=== PATIENT | male | born 1955 | race Caucasian/White ===

== ENCOUNTER 2016-12-09 16:07 | Emergency (ER) | payer OTHER, BC ==
[~2016-12-09] VITALS: Ht 175.3 cm; Wt 75.8 kg
[~2016-12-09 16:07] MED LIST: ADVAIR 250/501 DISK IH; ALKA-SELTZER B324 MG PO; AMLODIPINE BESY10 MG PO; ASPIRIN325 MG PO; ASPIRIN81 M2 PO; BYSTOLIC5 MG; CARVEDILOL25 MG PO; FOLIC ACID1 MG PO; HYDROCHLOROTHIA25 MG PO; LIBRIUM25 MG PO; LOPRESSOR25 MG PO; LOSARTAN POTASS50 MG PO; MOTRIN600 MG PO; NAPROSYN500 MG PO; THIAMINE HCL100 MG PO; ULTRAM50 MG PO; VENTOLIN HFA18 GM IH
[2016-12-09 23:01] VITALS: BP 139/87
== END 2016-12-09 23:01 | disposition home or self-care (01) ==
LOC: EME 16:07
DX: M19.031 Primary osteoarthritis, right wrist (principal); F10.10 Alcohol abuse, uncomplicated; V49.40XA Driver injured in collision with unspecified motor vehicles in traffic accident, initial encounter; Z88.8 Allergy status to other drugs, medicaments and biological substances
CPT/HCPCS: 70450; 71020; 72125; 73110; 73130; 99281; 99284

== ENCOUNTER 2017-05-23 14:40 | Inpatient (IN) | payer BC, OTHER ==
[~2017-05-23] VITALS: Ht 177.8 cm; Wt 71.0 kg
[2017-05-23 16:02] LABS: MCH 32.9 PG (29.0-34.0); MCHC 35.9 G/DL (30.0-36.0); MCV 91.5 FL (86-99); PLATELET COUNT 96 K/uL (156-360); RBC DIS.WIDTH-CV 12.4 % (11.8-14.6); RBC DIS.WIDTH-SD 41.2 % (39-53); RED BLOOD COUNT 4.26 M/uL (4.00-5.50); WHITE BLOOD COUNT 6.2 K/uL (4.1-10.2)
[2017-05-23 16:10] LABS: ALBUMIN 4.4 g/dL (3.2-4.8); CHLORIDE 98 mEq/L (99-109); POTASSIUM 4.3 mEq/L (3.7-5.4); SODIUM 138 mEq/L (136-147)
[2017-05-23 16:13] LABS: GLUCOSE 85 mg/dL (70-99); TOTAL PROTEIN 8.8 g/dL (6.4-8.3)
[2017-05-23 16:15] LABS: TOTAL BILIRUBIN 1.2 mg/dL (0.0-1.0)
[2017-05-23 16:16] LABS: ALKALINE PHOSPHATASE 67 IU/L (3-129); SERUM ETHYL ALCOHOL 24 mg/dL
[2017-05-23 16:17] LABS: CREATININE 0.9 mg/dL (0.6-1.3); GFR ESTIMATE (CALCULATED) > 59 mL/min/ (58.99-99999)
[2017-05-23 16:18] LABS: AST (GOT) 103 IU/L (2-34); UREA NITROGEN (BUN) 17 mg/dL (9-23)
[2017-05-23 16:19] LABS: ALT (GPT) 74 IU/L (3-49)
[2017-05-23 17:04] LABS: INTER. NORMALIZED RATIO 1.1
[2017-05-23 23:06] LABS: MAGNESIUM 1.7 mg/dL (1.3-2.7)
[2017-05-23] MEDS ORDERED: BREO ELLIPTA I1 EACH IH (23:07)
[2017-05-23] MEDS ORDERED: POLYTRIM EYE DR10 ML BOTH EYES (23:07)
[2017-05-23] MEDS ORDERED: ERYTHROMYC1 APPLICAT BOTH EYES (23:08)
[2017-05-23 23:39] VITALS: BP 119/113
[2017-05-23 23:46] LABS: MAGNESIUM 1.6 mg/dL (1.3-2.7)
[2017-05-23 23:50] LABS: PHOSPHORUS 2.9 mg/dL (2.5-4.9)
[2017-05-23 23:57] LABS: TROP-I INTERPRETATION NEGATIVE; TROPONIN-I 0.16 ng/mL (0.0-0.30)
[2017-05-24 03:55] VITALS: BP 176/100
[2017-05-24 06:42] LABS: TROP-I INTERPRETATION NEGATIVE; TROPONIN-I 0.12 ng/mL (0.0-0.30)
[2017-05-24 06:46] LABS: MAGNESIUM 1.5 mg/dl (1.3-2.7); PHOSPHORUS 2.9 mg/dL (2.5-4.9)
[2017-05-24 07:47] VITALS: BP 157/98
[2017-05-24 07:52] LABS: HEMATOCRIT 38.5 % (38.0-50.0); HEMOGLOBIN 13.5 G/DL (12.5-16.6); MCH 32.5 PG (29.0-34.0); MCHC 35.1 G/DL (30.0-36.0); MCV 92.5 FL (86-99); PLATELET COUNT 94 K/uL (156-360); RBC DIS.WIDTH-CV 12.4 % (11.8-14.6); RBC DIS.WIDTH-SD 42.4 % (39-53); RED BLOOD COUNT 4.16 M/uL (4.00-5.50); WHITE BLOOD COUNT 6.3 K/uL (4.1-10.2)
[2017-05-24 08:04] LABS: ALBUMIN 4.1 G/DL (3.2-4.8); ALKALINE PHOSPHATASE 61 IU/L (3-129); ALT (GPT) 51 IU/L (3-49); AST (GOT) 66 IU/L (2-34); CHLORIDE 97 MEQ/L (99-109); CREATININE 0.9 MG/DL (0.6-1.3); GFR ESTIMATE (CALCULATED) > 59 mL/min/ (58.99-99999); GLUCOSE 110 mg/dL (70-99); POTASSIUM 3.6 MEQ/L (3.7-5.4); SODIUM 138 MEQ/L (136-147); TOTAL BILIRUBIN 1.6 MG/DL (0.0-1.0); TOTAL PROTEIN 7.5 G/DL (6.4-8.3); UREA NITROGEN (BUN) 15 mg/dL (9-23)
[2017-05-24 11:16] VITALS: BP 133/77
[2017-05-24 13:11] LABS: TROP-I INTERPRETATION NEGATIVE; TROPONIN-I 0.09 ng/mL (0.0-0.30)
[2017-05-24 16:16] VITALS: BP 153/83
[2017-05-24 19:01] VITALS: BP 158/70
[2017-05-24 23:50] VITALS: BP 145/64
[2017-05-25 07:43] VITALS: BP 116/69
[2017-05-25 12:18] VITALS: BP 140/62
[2017-05-25 16:14] VITALS: BP 122/67
[2017-05-25 21:27] VITALS: BP 158/86
[2017-05-26 06:59] VITALS: BP 140/81
[2017-05-26 07:34] LABS: ALBUMIN 3.6 G/DL (3.2-4.8); ALKALINE PHOSPHATASE 56 IU/L (3-129); ALT (GPT) 74 IU/L (3-49); CHLORIDE 103 MEQ/L (99-109); CREATININE 0.7 MG/DL (0.6-1.3); GFR ESTIMATE (CALCULATED) > 59 mL/min/ (58.99-99999); GLUCOSE 83 mg/dL (70-99); POTASSIUM 3.2 MEQ/L (3.7-5.4); SODIUM 140 MEQ/L (136-147); TOTAL PROTEIN 6.6 G/DL (6.4-8.3); UREA NITROGEN (BUN) 10 mg/dL (9-23)
[2017-05-26 07:36] LABS: AST (GOT) 117 IU/L (2-34); TOTAL BILIRUBIN 1.2 MG/DL (0.0-1.0)
[2017-05-26 15:11] VITALS: BP 149/80
[2017-05-26 23:39] VITALS: BP 166/93
[2017-05-27 05:53] LABS: HEMATOCRIT 37.2 % (38.0-50.0); HEMOGLOBIN 13.2 G/DL (12.5-16.6); MCH 32.8 PG (29.0-34.0); MCHC 35.5 G/DL (30.0-36.0); MCV 92.5 FL (86-99); PLATELET COUNT 113 K/uL (156-360); RBC DIS.WIDTH-CV 12.3 % (11.8-14.6); RBC DIS.WIDTH-SD 42.3 % (39-53); RED BLOOD COUNT 4.02 M/uL (4.00-5.50); WHITE BLOOD COUNT 5.7 K/uL (4.1-10.2)
[2017-05-27 06:25] LABS: ALBUMIN 3.8 G/DL (3.2-4.8); ALKALINE PHOSPHATASE 59 IU/L (3-129); ALT (GPT) 93 IU/L (3-49); AST (GOT) 120 IU/L (2-34); CHLORIDE 102 MEQ/L (99-109); CREATININE 0.8 MG/DL (0.6-1.3); GFR ESTIMATE (CALCULATED) > 59 mL/min/ (58.99-99999); GLUCOSE 97 mg/dL (70-99); SODIUM 137 MEQ/L (136-147); UREA NITROGEN (BUN) 11 mg/dL (9-23)
[2017-05-27 06:33] LABS: POTASSIUM 3.9 MEQ/L (3.7-5.4)
[2017-05-27 07:48] VITALS: BP 191/99
[2017-05-27 11:30] VITALS: BP 128/70
[2017-05-27 15:48] VITALS: BP 130/67
[2017-05-27 20:20] VITALS: BP 163/98
[2017-05-28 00:10] VITALS: BP 178/83
[2017-05-28 07:21] VITALS: BP 185/91
[2017-05-28 15:59] VITALS: BP 148/76
[2017-05-28 21:06] VITALS: BP 183/94
[2017-05-29 05:32] VITALS: BP 143/110
[2017-05-29 06:49] LABS: HEMATOCRIT 36.7 % (38.0-50.0); HEMOGLOBIN 13.1 G/DL (12.5-16.6); MCH 33.7 PG (29.0-34.0); MCHC 35.7 G/DL (30.0-36.0); MCV 94.3 FL (86-99); RBC DIS.WIDTH-CV 13.2 % (11.8-14.6); RBC DIS.WIDTH-SD 44.7 % (39-53); RED BLOOD COUNT 3.89 M/uL (4.00-5.50); WHITE BLOOD COUNT 11.7 K/uL (4.1-10.2)
[2017-05-29 06:50] LABS: PLATELET COUNT 158 K/uL (156-360)
[2017-05-29 07:14] LABS: ALBUMIN 4.1 G/DL (3.2-4.8); ALKALINE PHOSPHATASE 55 IU/L (3-129); ALT (GPT) 118 IU/L (3-49); AST (GOT) 103 IU/L (2-34); CHLORIDE 105 MEQ/L (99-109); CREATININE 0.9 MG/DL (0.6-1.3); GFR ESTIMATE (CALCULATED) > 59 mL/min/ (58.99-99999); GLUCOSE 83 mg/dL (70-99); SODIUM 141 MEQ/L (136-147); UREA NITROGEN (BUN) 11 mg/dL (9-23)
[2017-05-29 07:15] LABS: MAGNESIUM 1.2 mg/dl (1.3-2.7)
[2017-05-29 07:25] VITALS: BP 160/84
[2017-05-29 15:19] VITALS: BP 146/89
[2017-05-29 23:38] VITALS: BP 158/63
[2017-05-29 23:39] VITALS: BP 168/78
[2017-05-30 06:33] LABS: HEMATOCRIT 35.9 % (38.0-50.0); HEMOGLOBIN 12.8 G/DL (12.5-16.6); MCH 33.9 PG (29.0-34.0); MCHC 35.7 G/DL (30.0-36.0); PLATELET COUNT 175 K/uL (156-360); RBC DIS.WIDTH-CV 13.1 % (11.8-14.6); RBC DIS.WIDTH-SD 45.3 % (39-53); RED BLOOD COUNT 3.78 M/uL (4.00-5.50); WHITE BLOOD COUNT 10.2 K/uL (4.1-10.2)
[2017-05-30 07:07] VITALS: BP 154/77
[2017-05-30 07:12] LABS: ALBUMIN 3.7 G/DL (3.2-4.8); ALKALINE PHOSPHATASE 53 IU/L (3-129); ALT (GPT) 92 IU/L (3-49); CHLORIDE 108 MEQ/L (99-109); GFR ESTIMATE (CALCULATED) > 59 mL/min/ (58.99-99999); GLUCOSE 81 mg/dL (70-99); POTASSIUM 3.9 MEQ/L (3.7-5.4); SODIUM 140 MEQ/L (136-147); TOTAL PROTEIN 6.8 G/DL (6.4-8.3); UREA NITROGEN (BUN) 15 mg/dL (9-23)
[2017-05-30 07:13] LABS: AST (GOT) 212 IU/L (2-34); MAGNESIUM 2.1 mg/dl (1.3-2.7)
[2017-05-30 15:09] VITALS: BP 144/81
[2017-05-31 00:22] VITALS: BP 180/93
[2017-05-31 04:25] VITALS: BP 133/73
[2017-05-31 06:39] LABS: HEMATOCRIT 34.3 % (38.0-50.0); HEMOGLOBIN 11.9 G/DL (12.5-16.6); MCHC 34.7 G/DL (30.0-36.0); MCV 92.2 FL (86-99); PLATELET COUNT 209 K/uL (156-360); RBC DIS.WIDTH-CV 12.6 % (11.8-14.6); RBC DIS.WIDTH-SD 42.6 % (39-53); RED BLOOD COUNT 3.72 M/uL (4.00-5.50); WHITE BLOOD COUNT 9.9 K/uL (4.1-10.2)
[2017-05-31 07:16] LABS: ALBUMIN 3.3 G/DL (3.2-4.8); ALKALINE PHOSPHATASE 49 IU/L (3-129); ALT (GPT) 64 IU/L (3-49); AST (GOT) 142 IU/L (2-34); CHLORIDE 104 MEQ/L (99-109); CREATININE 0.9 MG/DL (0.6-1.3); GFR ESTIMATE (CALCULATED) > 59 mL/min/ (58.99-99999); GLUCOSE 122 mg/dL (70-99); POTASSIUM 3.7 MEQ/L (3.7-5.4); SODIUM 136 MEQ/L (136-147); TOTAL BILIRUBIN 1.2 MG/DL (0.0-1.0); TOTAL PROTEIN 6.2 G/DL (6.4-8.3); UREA NITROGEN (BUN) 10 mg/dL (9-23)
[2017-05-31 07:40] VITALS: BP 158/85
[2017-05-31 16:16] VITALS: BP 151/76
[2017-05-31 23:46] VITALS: BP 126/65
[2017-06-01 06:49] VITALS: BP 144/65
[2017-06-01 15:15] VITALS: BP 139/70
[2017-06-02 00:11] VITALS: BP 136/70
[2017-06-02 04:15] VITALS: BP 125/71
[2017-06-02 06:57] VITALS: BP 129/62
[2017-06-02 15:10] VITALS: BP 140/69
[2017-06-02 23:35] VITALS: BP 151/75
[2017-06-03 07:44] VITALS: BP 159/82
[2017-06-03 10:22] LABS: C DIFF TOXIN NEGATIVE (NEGATIVE)
[2017-06-03 16:08] VITALS: BP 160/74
[2017-06-03 23:46] VITALS: BP 177/77
[2017-06-04 05:58] LABS: HEMATOCRIT 34.5 % (38.0-50.0); HEMOGLOBIN 12.1 G/DL (12.5-16.6); MCHC 35.1 G/DL (30.0-36.0); RBC DIS.WIDTH-CV 12.5 % (11.8-14.6); RBC DIS.WIDTH-SD 43.1 % (39-53); RED BLOOD COUNT 3.67 M/uL (4.00-5.50); WHITE BLOOD COUNT 8.5 K/uL (4.1-10.2)
[2017-06-04 05:59] LABS: PLATELET COUNT 347 K/uL (156-360)
[2017-06-04 06:32] LABS: ALBUMIN 3.5 G/DL (3.2-4.8); ALKALINE PHOSPHATASE 54 IU/L (3-129); ALT (GPT) 75 IU/L (3-49); AST (GOT) 102 IU/L (2-34); CHLORIDE 103 MEQ/L (99-109); GFR ESTIMATE (CALCULATED) > 59 mL/min/ (58.99-99999); GLUCOSE 97 mg/dL (70-99); POTASSIUM 4.4 MEQ/L (3.7-5.4); SODIUM 136 MEQ/L (136-147); TOTAL BILIRUBIN 0.6 MG/DL (0.0-1.0); TOTAL PROTEIN 6.8 G/DL (6.4-8.3); UREA NITROGEN (BUN) 12 mg/dL (9-23)
[2017-06-04 06:56] VITALS: BP 113/53
[2017-06-04 15:09] VITALS: BP 110/64
[2017-06-04 20:11] VITALS: BP 141/75
[2017-06-05 00:14] VITALS: BP 100/51
[2017-06-05 07:50] VITALS: BP 144/77
[2017-06-05 16:00] VITALS: BP 123/65
[2017-06-05 19:49] VITALS: BP 152/81
[2017-06-06 00:39] VITALS: BP 159/77
[2017-06-06 07:40] VITALS: BP 148/82
[2017-06-06 16:16] VITALS: BP 146/77
[2017-06-06] MEDS ORDERED: CLONIDINE HCL0.1 MG PO (16:37)
[2017-06-06] MEDS ORDERED: LOSARTAN POTASS50 MG PO (16:37)
[2017-06-06] MEDS ORDERED: CARVEDILOL25 MG PO (16:37)
[2017-06-06] MEDS ORDERED: AMLODIPINE BESY10 MG PO (16:37)
[2017-06-06] MEDS ORDERED: Thiamine,Vitamin B1 PO (16:38)
[2017-06-06] MEDS ORDERED: THERAGRAN1 TABLET PO (16:38)
[2017-06-06] MEDS ORDERED: FOLIC ACID1 MG PO (16:38)
== END 2017-06-06 18:19 | DRG 896 ==
LOC: EME 14:40 → 5SOUTH 22:00 → EDOF 22:00 → ENRESERV 22:05 → 5SOUTH 23:16
PROVIDERS: Emergency Medicine Emergency Medical Services; Hospitalist; Internal Medicine
DX: F10.239 Alcohol dependence with withdrawal, unspecified (principal); Y90.1 Blood alcohol level of 20-39 mg/100 ml; J69.0 Pneumonitis due to inhalation of food and vomit; E46 Unspecified protein-calorie malnutrition; D69.6 Thrombocytopenia, unspecified; Z91.14 Patient's other noncompliance with medication regimen; Z91.19 Patient's noncompliance with other medical treatment and regimen; G89.29 Other chronic pain; I10 Essential (primary) hypertension; I16.0 Hypertensive urgency; I25.10 Atherosclerotic heart disease of native coronary artery without angina pectoris; M54.5 Low back pain; R19.7 Diarrhea, unspecified; R33.9 Retention of urine, unspecified; R74.0 Nonspecific elevation of levels of transaminase and lactic acid dehydrogenase [LDH]; J43.9 Emphysema, unspecified; F17.200 Nicotine dependence, unspecified, uncomplicated; Z95.1 Presence of aortocoronary bypass graft
CPT/HCPCS: 70450; 71010; 80053; 82140; 82948; 83735; 84100; 84484; 85027; 85610; 87493; 93005; 94640; 94640 76; 97530 GO; 97530 GP; 99202; 99281; 99285; G0480; J1650; J2060; J2543; J3411; J3475; J3480; J7030; J7042; J7050; J7120